=== PATIENT | male | born 1975 | race African-American/Black ===

== ENCOUNTER 2016-12-08 06:44 | Emergency (ER) | payer MEDICAID, OTHER ==
[~2016-12-08] VITALS: Ht 167.6 cm; Wt 93.2 kg
[~2016-12-08 06:44] MED LIST: IBUP800T23 PO; LISI-357 PO; TRAM50 PO
[2016-12-08 06:49] VITALS: BP_SYST 183; BP_SYST 195; BP_DIAS 131; BP_DIAS 136; PULSE 93; RESP 16; TEMP 98.7; O2SAT 98
[2016-12-08 06:59] VITALS: BP 210/132; PULSE 95; RESP 17; O2SAT 98
[2016-12-08] MEDS ORDERED: ACETAMINOPHEN 325 MG TAB PO ONE (07:15)
[2016-12-08] MEDS ORDERED: LISINOPRIL 10 MG TAB PO ONE (07:15)
[2016-12-08 07:36] VITALS: BP 192/126; PULSE 87; RESP 18; O2SAT 98
[2016-12-08 07:42] LABS: AUTOMATED NEUTROPHIL # 8.1 TH/MM3 (1.8-7.7); BASOPHIL # 0.1 TH/MM3 (0-0.2); EOSINOPHIL # 0.1 TH/MM3 (0-0.4); EOSINOPHIL % 1.2 % (0.0-4.0); HEMATOCRIT 43.6 % (39.0-51.0); LYMPH % 11.6 % (9.0-44.0); LYMPHOCYTE # 1.2 TH/MM3 (1.0-4.8); MEAN CELL VOLUME 93.2 FL (80.0-100.0); MEAN CORPUSCULAR HEMOGLOBIN 30.5 PG (27.0-34.0); MEAN CORPUSCULAR HGB CONC 32.8 % (32.0-36.0); MONO % 10.1 % (0.0-8.0); NEUT % 76.1 % (16.0-70.0); PLATELET COUNT 208 TH/MM3 (150-450); RED BLOOD COUNT 4.67 MIL/MM3 (4.50-5.90); RED CELL DISTRIBUTION WIDTH 13.2 % (11.6-17.2); WHITE BLOOD COUNT 10.6 TH/MM3 (4.0-11.0)
[2016-12-08 07:43] LABS: HEMO FLAGS DIFF FINAL
--- NOTE | 2016-12-08 07:46 | RADHPO ---
EXAM DATE/TIME: 12/08/2016 07:19 [place] COMPARISON: CHEST PA & LAT, September 03, 2013, 10:43. INDICATIONS : Short of breath. Facial/throat swelling. MEDICAL HISTORY : Hypertension. SURGICAL HISTORY : Appendectomy. ENCOUNTER: Initial ACUITY: 1 day PAIN SCORE: 0/10 LOCATION: chest FINDINGS: PA and lateral views of the chest demonstrate the lungs to be symmetrically aerated without evidence of mass, infiltrate or effusion. The cardiomediastinal contours are unremarkable. Osseous structure s are intact. CONCLUSION: No acute disease. Devin Long MD on December 08, 2016 at 7:43 Board Certified Radiologist. This report was verified electronically.
[2016-12-08 07:49] LABS: POTASSIUM 3.5 MEQ/L (3.5-5.1)
[2016-12-08 07:52] LABS: BICARBONATE 25.2 MEQ/L (21.0-32.0)
[2016-12-08 08:06] VITALS: BP 198/127; PULSE 84; RESP 18; O2SAT 98
[2016-12-08] MEDS ORDERED: AMLO5TAB2 PO (08:11)
--- NOTE | 2016-12-08 08:11 | PD ---
HPI Chief Complaint: Hypertension Time Seen by Provider: 07:03 Travel History International Travel<30 days: No Contact w/Intl Traveler<30days: No Traveled to known affect area: No History of Present Illness HPI A 41-year-old male presents to the emergency department complaining these had throbbing pain and swelling behind his ears in his head. His blood pressures also been very high. He has a history of hypertension out of medications for the past 1-2 months. No changes in vision. No confusion. No chest pain. States she does get occasional trouble breathing, mostly when he is lying down at night and sleeping. No leg swelling. No history of previous similar symptoms. History Past Medical History Narrative Medical Hypertension Influenza Vaccination: No Social History Alcohol Use: Yes (occasional) Tobacco Use: Yes (cigars) Allergies-Medications (Allergen,Severity, Reaction): Coded Allergies: No Known Allergies (Unverified , 12/08/16) Reported Meds & Prescriptions Reported Meds & Active Scripts Active No Active Prescriptions or Reported Medications Review of Systems Except as stated in HPI: all other systems reviewed are Neg Physical Exam Narrative GENERAL: Well-appearing 41-year-old man, no acute distress. SKIN: Warm and dry. HEAD: Atraumatic. Normocephalic. CARDIOVASCULAR: Regular rate and rhythm. No murmur appreciated. RESPIRATORY: No accessory muscle use. Clear to auscultation. Breath sounds equal bilaterally. GASTROINTESTINAL: Abdomen soft, non-tender, nondistended. Hepatic and splenic margins not palpable. MUSCULOSKELETAL: No obvious deformities. No edema. NEUROLOGICAL: Awake and alert. No obvious cranial nerve deficits. Motor grossly within normal limits. Normal speech. PSYCHIATRIC: Appropriate mood and affect; insight and judgment normal. Data Data Last Documented VS Vital Signs Date Time Temp Pulse Resp B/P Pulse Ox O2 Delivery O2 Flow Rate FiO2 12/08/16 07:36 87 18 192/126 98 Room Air 12/08/16 06:49 98.7 Orders Complete Blood Count With Diff (12/08/16 07:13) Basic Metabolic Panel (Bmp) (12/08/16 07:13) Electrocardiogram (12/08/16 ) Chest, Pa & Lat (12/08/16 ) Iv Access Insert/Monitor (12/08/16 07:13) Acetaminophen (Tylenol) (12/08/16 07:15) Lisinopril (Prinivil) (12/08/16 07:15) Labs Laboratory Tests Test 12/08/16 07:30 White Blood Count 10.6 TH/MM3 Red Blood Count 4.67 MIL/MM3 Hemoglobin 14.3 GM/DL Hematocrit 43.6 % Mean Corpuscular Volume 93.2 FL Mean Corpuscular Hemoglobin 30.5 PG Mean Corpuscular Hemoglobin 32.8 % Concent Red Cell Distribution Width 13.2 % Platelet Count 208 TH/MM3 Mean Platelet Volume 8.8 FL Neutrophils (%) (Auto) 76.1 % Lymphocytes (%) (Auto) 11.6 % Monocytes (%) (Auto) 10.1 % Eosinophils (%) (Auto) 1.2 % Basophils (%) (Auto) 1.0 % Neutrophils # (Auto) 8.1 TH/MM3 Lymphocytes # (Auto) 1.2 TH/MM3 Monocytes # (Auto) 1.1 TH/MM3 Eosinophils # (Auto) 0.1 TH/MM3 Basophils # (Auto) 0.1 TH/MM3 CBC Comment DIFF FINAL Differential Comment Sodium Level 142 MEQ/L Potassium Level 3.5 MEQ/L Chloride Level 108 MEQ/L Carbon Dioxide Level 25.2 MEQ/L Anion Gap 9 MEQ/L Blood Urea Nitrogen 14 MG/DL Creatinine 1.90 MG/DL Estimat Glomerular Filtration 48 ML/MIN Rate Random Glucose 106 MG/DL Calcium Level 8.5 MG/DL [facility] Medical Decision Making Medical Screen Exam Complete: Yes Emergency Medical Condition: Yes Interpretation(s) Review of EKG: Normal sinus rhythm at a rate of 88, normal axis, short RI interval 1 awake, inferolateral T-wave inversions with anterior precordial ST elevations and large QRS suggestive of LVH. Compared to previous EKG lateral precordial T wave inversions are more pronounced. LABS: CBC is unremarkable. BMP is remarkable for elevated creatinine. No old for comparison. Chest x-ray: Negative Differential Diagnosis Hypertensive crisis, ACS, LVH, CHF, other Narrative Course Medical decision making 41-year-old man presents emergency Department with throbbing headache behind his eyes and ears, elevated blood pressure, and occasional shortness of breath. I don't see any evidence of overt heart failure. EKG suggests hypertensive heart disease. I don't think he has an acute coronary syndrome. Probable hypertensive renal disease as well. We will place patient on amlodipine, encourage and keep a log of his blood pressures, close outpatient follow-up. Diagnosis Primary Impression: Hypertension Qualified Code: I10 - Essential hypertension Additional Impression: Cephalgia Qualified Code: G44.209 - Acute non intractable tension-type headache Additional Instructions: Take amlodipine as prescribed. Keep a Log of your blood pressure to go with you when you follow up with your primary doctor. You have evidence of damage she heart in her kidneys from hypertension. It is Essential that you follow-up with a primary physician in the next 2-4 weeks for further evaluation and management of her blood pressure. Return to the emergency department for any chest pain, trouble breathing, or any other new or worsening symptoms. Med/Other Pt SpecificInfo: Prescription(s) given Scripts Amlodipine 5 Mg Tab5 Mg PO DAILY #30 TAB Ref 2 Prov:Jorden Mancilla MD 12/08/16 Disposition: 01 DISCHARGE HOME Condition: Stable Jorden Mancilla MD Dec 08, 2016 08:11
--- NOTE | 2016-12-09 06:50 | EKG ---
Date Performed: 12/08/2016 Time Performed: 07:40:44 PTAGE: 41 years EKG: Sinus rhythm Short UT interval Left ventricular hypertrophy Extensive ST-T changes may be due to hypertrophy and/ or ischemia Abnormal ECG PREVIOUS TRACING : 09/03/2013 10.20 Compared to prior tracing no significant change DOCTOR: Santos Arizmendi Interpretating Date/Time 12/09/2016 06:47:07
== END 2016-12-08 08:24 | disposition home or self-care (01) ==
LOC: PHED 06:44
DX: I10 Essential (primary) hypertension (principal); G44.209 Tension-type headache, unspecified, not intractable
CPT/HCPCS: 71020; 80048; 85025; 93005

== ENCOUNTER 2018-04-30 19:32 | Inpatient (IN) ==
[2018-05-05] MEDS ORDERED: niCARdipine Inj 25 MG in Sodium Chlor 0.9% Inj 240 ML IV.CONT PRN (06:04)
[2018-05-06] MEDS ORDERED: Naloxone Inj 0.4 MG/ML Vial IV.PUSH PRN (00:01)
[2018-05-06] MEDS ORDERED: Chlorhexidine Gluconate 2% 1 Pack (2 Cloths) TOPICAL PRN (00:01)
[2018-05-06] MEDS ORDERED: Acetaminophen 325 MG Tablet PO PRN (00:01)
[2018-05-06] MEDS: niCARdipine Inj 25 MG in Sodium Chlor 0.9% Inj 240 ML IV.CONT PRN ×2 (03:40→10:11)
[2018-05-06] MEDS: Heparin - SQ 10,000 UNITS/ML Vial SQ SCH ×3 (05:31→21:12)
[2018-05-06] MEDS: hydrALAZINE 50 MG Tablet PO SCH ×3 (05:31→21:11)
[2018-05-06] MEDS: Potassium Chloride Inj 10 MEQ in Dextrose 5%/NaCl 0.9% Inj 1,000 ML IV.CONT SCH (05:32)
[2018-05-06] MEDS ORDERED: hydrALAZINE 25 MG Tablet PO SCH (06:00)
[2018-05-06 06:05] LABS: Baso # (Auto) 0.1 th/mm3 (0.0-0.2); Eos # (Auto) 0.2 th/mm3 (0.0-0.4); Hematocrit 38.9 % (39.0-51.0); Hemoglobin 13.3 gm/dL (13.0-17.0); Lymph # (Auto) 1.5 th/mm3 (1.0-4.8); Lymph % (Auto) 27.6 % (9.0-44.0); Mean Corpuscular HGB Conc 34.3 % (32.0-36.0); Mean Corpuscular Hemoglobin 31.9 pg (27.0-34.0); Mean Corpuscular Volume 93.1 fL (80.0-100.0); Mean Platelet Volume 9.5 fL (7.0-11.0); Mono # (Auto) 0.5 th/mm3 (0.0-0.9); Mono % (Auto) 9.1 % (0.0-8.0); Neut # (Auto) 3.1 th/mm3 (1.8-7.7); Neut % (Auto) 58.3 % (16.0-70.0); Platelet Count 216 th/mm3 (150-450); Red Blood Count 4.18 mil/mm3 (4.50-5.90); Red Cell Distribution Width 13.5 % (11.6-17.2); White Blood Count 5.3 th/mm3 (4.0-11.0)
[2018-05-06 06:34] LABS: Alanine Aminotransferase 67 U/L (12-78); Alkaline Phosphatase 86 U/L (45-117); Anion Gap 12 meq/L (5-15); Aspartate Aminotransferase 38 U/L (15-37); Blood Urea Nitrogen 17 mg/dL (7-18); Calcium 8.2 mg/dL (8.5-10.1); Carbon Dioxide 20.4 meq/L (21.0-32.0); Chloride 110 meq/L (98-107); Glomerular Filtration Rate 42 mL/min (>89); Glucose,Random 92 mg/dL (74-106); Phosphorus 3.5 mg/dL (2.5-4.9); Potassium 3.5 meq/L (3.5-5.1); Sodium 142 meq/L (136-145); Total Protein 6.4 g/dL (6.4-8.2)
[2018-05-06] MEDS ORDERED: Bisacodyl 10 MG Supp RECTAL PRN (09:00)
[2018-05-06] MEDS: Pantoprazole Inj 40 MG Vial IV.PUSH SCH (09:06)
[2018-05-06] MEDS: amLODIPine 10 MG Tablet PO SCH (09:06)
[2018-05-06] MEDS: Senna/Docusate Sodium 8.6/50 MG Tablet PO SCH ×2 (09:08→21:11)
--- NOTE | 2018-05-06 10:21 | P.PN ---
Subjective Interval history: Patient is alert, no SOB, no headache. Physical Exam Vital signs: Vital Signs 05/06/18 00:04 05/06/18 00:15 05/06/18 00:30 Temperature Pulse Rate 68 67 67 Respiratory Rate 18 18 20 Blood Pressure 147/84 H 150/96 H Pulse Oximetry 100 100 99 05/06/18 00:45 05/06/18 01:00 05/06/18 01:15 Temperature Pulse Rate 61 64 60 Respiratory Rate 14 19 14 Blood Pressure 147/91 H 148/89 H 142/85 H Pulse Oximetry 99 98 99 05/06/18 01:30 05/06/18 01:45 05/06/18 02:00 Temperature Pulse Rate 62 67 67 Respiratory Rate 18 18 22 Blood Pressure 149/86 H 153/89 H 150/66 H Pulse Oximetry 99 99 100 05/06/18 02:15 05/06/18 02:30 05/06/18 02:45 Temperature Pulse Rate 67 65 65 Respiratory Rate 16 21 19 Blood Pressure 154/95 H 152/81 H 150/85 H Pulse Oximetry 100 100 100 05/06/18 03:00 05/06/18 03:15 05/06/18 03:30 Temperature Pulse Rate 67 76 60 Respiratory Rate 18 31 H 14 Blood Pressure 152/88 H 154/93 H 146/88 H Pulse Oximetry 100 93 L 100 05/06/18 03:45 05/06/18 04:00 05/06/18 04:15 Temperature 98.0 F Pulse Rate 67 61 62 Respiratory Rate 20 16 16 Blood Pressure 156/90 H 147/84 H 145/84 H Pulse Oximetry 100 100 100 05/06/18 04:30 05/06/18 04:45 05/06/18 05:00 Temperature Pulse Rate 61 66 62 Respiratory Rate 16 18 14 Blood Pressure 144/81 H 145/82 H 145/84 H Pulse Oximetry 100 98 99 Intake & Output 05/05/18 05/06/18 05/06/18 18:59 06:59 18:59 Intake Total 240 / 240 250 / 250 Output Total 2350 / 2350 Balance -2109 / -2109 250 / 250 Weight 80 kg Intake: IV 250 / 250 Cardene Inj 25 MG In NS Inj 240 250 / 250 ML @ 5 MG/HR 50 mls/hr IV.CONT TITRATE PRN Rx#:[id number] Oral 240 / 240 Output: Urine 2350 / 2350 - Constitutional no acute distress - Routine HEENT Exam Head: Present: normocephalic Eye: Present: EOMI ENT: Present: mucous membranes moist - Routine Neck Exam Present: supple, JVD - Routine Respiratory Exam Present: CTA bilaterally, diminished air movement - Routine Cardiovascular Exam Present: S1, S2 - Routine Abdominal Exam Present: soft, normoactive bowel sounds, tenderness - Routine Extremities Exam Comments: No leg edema. - Routine Neurological Exam Present: alert, oriented X3 Results - Labs CBC & Chem 7: 05/06/18 05:10 05/06/18 05:10 Labs: Laboratory Results - last 24 hr 05/02/18 05/03/18 05/04/18 05:54 06:03 07:30 WBC RBC Hgb Hct MCV MCH MCHC RDW Plt Count MPV Neut % (Auto) Lymph % (Auto) [place] % (Auto) Eos % (Auto) Baso % (Auto) Neut # (Auto) Lymph # (Auto) [place] # (Auto) Eos # (Auto) Baso # (Auto) CBC Comment WBC Differential Differential Comment Sodium Cancelled Potassium Cancelled Chloride Cancelled Carbon Dioxide Cancelled Anion Gap Cancelled BUN Cancelled Creatinine Cancelled Estimated GFR Cancelled Random Glucose Cancelled Calcium Cancelled Phosphorus Cancelled Magnesium Total Bilirubin AST ALT Alkaline Phosphatase Total Protein Albumin Cancelled Triglycerides 66 Cholesterol 171 LDL Cholesterol 106 H HDL Cholesterol 52.0 Cholesterol/HDL Ratio 3.28 Renin 8.2 Plasma Normetanephrine 0.41 Fract Metanephrines <0.20 Urine Color Urine Turbidity Urine pH Ur Specific [place] Urine Protein Urine Glucose (UA) Urine Ketones Urine Occult Blood Urine Nitrite Urine Bilirubin Urine Urobilinogen Ur Leukocyte Esterase Urine RBC Urine Mucus Micro UA Comment 05/04/18 05/04/18 05/05/18 07:30 07:30 03:58 WBC 6.1 RBC 4.04 L Hgb 12.9 L Hct 38.6 L MCV 95.4 MCH 32.0 MCHC 33.5 RDW 13.2 Plt Count 202 MPV 9.4 Neut % (Auto) 61.6 Lymph % (Auto) 25.4 [place] % (Auto) 9.7 H Eos % (Auto) 2.4 Baso % (Auto) 0.9 Neut # (Auto) 3.8 Lymph # (Auto) 1.6 [place] # (Auto) 0.6 Eos # (Auto) 0.1 Baso # (Auto) 0.1 CBC Comment DIFF FINAL WBC Differential Differential Comment Sodium 140 142 Potassium 3.7 3.4 L Chloride 111 H 113 H Carbon Dioxide 18.7 L 20.9 L Anion Gap 10 8 BUN 24 H 20 H Creatinine 2.53 H 2.32 H Estimated GFR 34 L 38 L Random Glucose 90 94 Calcium 7.9 L 8.1 L Phosphorus 3.0 Magnesium 1.9 1.9 Total Bilirubin 0.7 AST 25 ALT 30 Alkaline Phosphatase 80 Total Protein 6.3 L D Albumin 3.0 L Triglycerides Cholesterol LDL Cholesterol HDL Cholesterol Cholesterol/HDL Ratio [place] Plasma Normetanephrine Fract Metanephrines Urine Color Urine Turbidity Urine pH Ur Specific [place] Urine Protein Urine Glucose (UA) Urine Ketones Urine Occult Blood Urine Nitrite Urine Bilirubin Urine Urobilinogen Ur Leukocyte Esterase Urine RBC Urine Mucus Micro UA Comment 05/05/18 05/05/18 05/06/18 12:18 20:00 05:10 WBC 5.3 RBC 4.18 L Hgb 13.3 Hct 38.9 L MCV 93.1 MCH 31.9 MCHC 34.3 RDW 13.5 Plt Count 216 MPV 9.5 Neut % (Auto) 58.3 Lymph % (Auto) 27.6 [place] % (Auto) 9.1 H Eos % (Auto) 4.0 Baso % (Auto) 1.0 Neut # (Auto) 3.1 Lymph # (Auto) 1.5 [place] # (Auto) 0.5 Eos # (Auto) 0.2 Baso # (Auto) 0.1 CBC Comment WBC Differential . Differential Comment Auto diff final Sodium Potassium 3.8 Chloride Carbon Dioxide Anion Gap BUN Creatinine Estimated GFR Random Glucose Calcium Phosphorus Magnesium Total Bilirubin AST ALT Alkaline Phosphatase Total Protein Albumin Triglycerides Cholesterol LDL Cholesterol HDL Cholesterol Cholesterol/HDL Ratio [place] Plasma Normetanephrine Fract Metanephrines Urine Color Straw Urine Turbidity CLEAR Urine pH 7.0 Ur Specific [place] 1.008 Urine Protein NEG Urine Glucose (UA) 50 Urine Ketones NEG Urine Occult Blood NEG Urine Nitrite NEG Urine Bilirubin NEG Urine Urobilinogen LESS THAN 2 Ur Leukocyte Esterase NEG Urine RBC LESS THAN 1 Urine Mucus FEW H Micro UA Comment CULT NOT INDICATED 05/06/18 05:10 WBC RBC Hgb Hct MCV MCH MCHC RDW Plt Count MPV Neut % (Auto) Lymph % (Auto) [place] % (Auto) Eos % (Auto) Baso % (Auto) Neut # (Auto) Lymph # (Auto) [place] # (Auto) Eos # (Auto) Baso # (Auto) CBC Comment WBC Differential Differential Comment Sodium 142 Potassium 3.5 Chloride 110 H Carbon Dioxide 20.4 L Anion Gap 12 BUN 17 Creatinine 2.13 H Estimated GFR 42 L Random Glucose 92 Calcium 8.2 L Phosphorus 3.5 Magnesium 2.0 Total Bilirubin 0.4 AST 38 H ALT 67 Alkaline Phosphatase 86 Total Protein 6.4 Albumin 3.0 L Triglycerides Cholesterol LDL Cholesterol HDL Cholesterol Cholesterol/HDL Ratio [place] Plasma Normetanephrine Fract Metanephrines Urine Color Urine Turbidity Urine pH Ur Specific [place] Urine Protein Urine Glucose (UA) Urine Ketones Urine Occult Blood Urine Nitrite Urine Bilirubin Urine Urobilinogen Ur Leukocyte Esterase Urine RBC Urine Mucus Micro UA Comment Assessment and Plan - Plan (1) Malignant hypertension (arteriolar nephrosclerosis) ICD Codes: I12.9 - Hypertensive chronic kidney disease with stage 1 through stage 4 chronic kidney disease, or unspecified chronic kidney disease Plan: patient had BP 287/174 He had end organ damage HTN nephropathy non compliance stopped medications BP better , still on Nicardipine gtt. Renin is upper normal range. Metanephrine and Nor metanephrine normal. GFR improved may need MRA FREDDIE Creatinine continue to improve. Avoid Nephrotoxins. Has no proteinuria. (2) Hypertensive emergency ICD Codes: I16.1 - Hypertensive emergency Status: Acute Plan: non compliance (3) CVA (cerebral vascular accident) ICD Codes: I63.9 - Cerebral infarction, unspecified Plan: neurology following
--- NOTE | 2018-05-06 13:14 | P.PNIM ---
Subjective Interval history: The patient denies chest pain or shortness of breath. The patient denies headache. The patient states he is ready to go home. Creatinine trending down. As per RN the patient still on Cardene drip. Physical Exam Vital signs: Vital Signs 05/06/18 00:04 05/06/18 00:15 05/06/18 00:30 Temperature Pulse Rate 68 67 67 Respiratory Rate 18 18 20 Blood Pressure 147/84 H 150/96 H Pulse Oximetry 100 100 99 05/06/18 00:45 05/06/18 01:00 05/06/18 01:15 Temperature Pulse Rate 61 64 60 Respiratory Rate 14 19 14 Blood Pressure 147/91 H 148/89 H 142/85 H Pulse Oximetry 99 98 99 05/06/18 01:30 05/06/18 01:45 05/06/18 02:00 Temperature Pulse Rate 62 67 67 Respiratory Rate 18 18 22 Blood Pressure 149/86 H 153/89 H 150/66 H Pulse Oximetry 99 99 100 05/06/18 02:15 05/06/18 02:30 05/06/18 02:45 Temperature Pulse Rate 67 65 65 Respiratory Rate 16 21 19 Blood Pressure 154/95 H 152/81 H 150/85 H Pulse Oximetry 100 100 100 05/06/18 03:00 05/06/18 03:15 05/06/18 03:30 Temperature Pulse Rate 67 76 60 Respiratory Rate 18 31 H 14 Blood Pressure 152/88 H 154/93 H 146/88 H Pulse Oximetry 100 93 L 100 05/06/18 03:45 05/06/18 04:00 05/06/18 04:15 Temperature 98.0 F Pulse Rate 67 61 62 Respiratory Rate 20 16 16 Blood Pressure 156/90 H 147/84 H 145/84 H Pulse Oximetry 100 100 100 05/06/18 04:30 05/06/18 04:45 05/06/18 05:00 Temperature Pulse Rate 61 66 62 Respiratory Rate 16 18 14 Blood Pressure 144/81 H 145/82 H 145/84 H Pulse Oximetry 100 98 99 Intake & Output 05/05/18 05/06/18 05/06/18 18:59 06:59 18:59 Intake Total 240 / 240 250 / 250 Output Total 2350 / 2350 Balance -2110 / -2110 250 / 250 Weight 80 kg Intake: IV 250 / 250 Cardene Inj 25 MG In NS Inj 240 250 / 250 ML @ 5 MG/HR 50 mls/hr IV.CONT TITRATE PRN Rx#:[id number] Oral 240 / 240 Output: Urine 2350 / 2350 - Constitutional no acute distress - Routine HEENT Exam Head: Present: normocephalic Eye: Present: PERRL - Routine Neck Exam Present: supple - Routine Respiratory Exam Present: CTA bilaterally - Routine Cardiovascular Exam Present: RRR, S1, S2 - Routine Abdominal Exam Present: soft, normoactive bowel sounds - Routine Neurological Exam Present: alert, oriented X3, CN II-XII intact - Routine Psychiatric Exam Present: normal affect Results - Labs CBC & Chem 7: 05/06/18 05:10 05/06/18 05:10 Labs: Abnormal Lab Results 05/02/18 05/03/18 05/04/18 05:54 06:03 07:30 WBC RBC Hgb Hct MCV MCH MCHC RDW Plt Count MPV Neut % (Auto) Lymph % (Auto) [place] % (Auto) Eos % (Auto) Baso % (Auto) Neut # (Auto) Lymph # (Auto) [place] # (Auto) Eos # (Auto) Baso # (Auto) CBC Comment WBC Differential Differential Comment Sodium Cancelled Potassium Cancelled Chloride Cancelled Carbon Dioxide Cancelled Anion Gap Cancelled BUN Cancelled Creatinine Cancelled Estimated GFR Cancelled Random Glucose Cancelled Calcium Cancelled Phosphorus Cancelled Magnesium Total Bilirubin AST ALT Alkaline Phosphatase Total Protein Albumin Cancelled Triglycerides 66 Cholesterol 171 LDL Cholesterol 106 H HDL Cholesterol 52.0 Cholesterol/HDL Ratio 3.28 Renin 8.2 Plasma Normetanephrine 0.41 Fract Metanephrines <0.20 Urine Color Urine Turbidity Urine pH Ur Specific [place] Urine Protein Urine Glucose (UA) Urine Ketones Urine Occult Blood Urine Nitrite Urine Bilirubin Urine Urobilinogen Ur Leukocyte Esterase Urine RBC Urine Mucus Micro UA Comment 05/04/18 05/04/18 05/05/18 07:30 07:30 03:58 WBC 6.1 RBC 4.04 L Hgb 12.9 L Hct 38.6 L MCV 95.4 MCH 32.0 MCHC 33.5 RDW 13.2 Plt Count 202 MPV 9.4 Neut % (Auto) 61.6 Lymph % (Auto) 25.4 [place] % (Auto) 9.7 H Eos % (Auto) 2.4 Baso % (Auto) 0.9 Neut # (Auto) 3.8 Lymph # (Auto) 1.6 [place] # (Auto) 0.6 Eos # (Auto) 0.1 Baso # (Auto) 0.1 CBC Comment DIFF FINAL WBC Differential Differential Comment Sodium 140 142 Potassium 3.7 3.4 L Chloride 111 H 113 H Carbon Dioxide 18.7 L 20.9 L Anion Gap 10 8 BUN 24 H 20 H Creatinine 2.53 H 2.32 H Estimated GFR 34 L 38 L Random Glucose 90 94 Calcium 7.9 L 8.1 L Phosphorus 3.0 Magnesium 1.9 1.9 Total Bilirubin 0.7 AST 25 ALT 30 Alkaline Phosphatase 80 Total Protein 6.3 L D Albumin 3.0 L Triglycerides Cholesterol LDL Cholesterol HDL Cholesterol Cholesterol/HDL Ratio [place] Plasma Normetanephrine Fract Metanephrines Urine Color Urine Turbidity Urine pH Ur Specific [place] Urine Protein Urine Glucose (UA) Urine Ketones Urine Occult Blood Urine Nitrite Urine Bilirubin Urine Urobilinogen Ur Leukocyte Esterase Urine RBC Urine Mucus Micro UA Comment 05/05/18 05/05/18 05/06/18 12:18 20:00 05:10 WBC 5.3 RBC 4.18 L Hgb 13.3 Hct 38.9 L MCV 93.1 MCH 31.9 MCHC 34.3 RDW 13.5 Plt Count 216 MPV 9.5 Neut % (Auto) 58.3 Lymph % (Auto) 27.6 [place] % (Auto) 9.1 H Eos % (Auto) 4.0 Baso % (Auto) 1.0 Neut # (Auto) 3.1 Lymph # (Auto) 1.5 [place] # (Auto) 0.5 Eos # (Auto) 0.2 Baso # (Auto) 0.1 CBC Comment WBC Differential . Differential Comment Auto diff final Sodium Potassium 3.8 Chloride Carbon Dioxide Anion Gap BUN Creatinine Estimated GFR Random Glucose Calcium Phosphorus Magnesium Total Bilirubin AST ALT Alkaline Phosphatase Total Protein Albumin Triglycerides Cholesterol LDL Cholesterol HDL Cholesterol Cholesterol/HDL Ratio [place] Plasma Normetanephrine Fract Metanephrines Urine Color Straw Urine Turbidity CLEAR Urine pH 7.0 Ur Specific [place] 1.008 Urine Protein NEG Urine Glucose (UA) 50 Urine Ketones NEG Urine Occult Blood NEG Urine Nitrite NEG Urine Bilirubin NEG Urine Urobilinogen LESS THAN 2 Ur Leukocyte Esterase NEG Urine RBC LESS THAN 1 Urine Mucus FEW H Micro UA Comment CULT NOT INDICATED 05/06/18 05:10 WBC RBC Hgb Hct MCV MCH MCHC RDW Plt Count MPV Neut % (Auto) Lymph % (Auto) [place] % (Auto) Eos % (Auto) Baso % (Auto) Neut # (Auto) Lymph # (Auto) [place] # (Auto) Eos # (Auto) Baso # (Auto) CBC Comment WBC Differential Differential Comment Sodium 142 Potassium 3.5 Chloride 110 H Carbon Dioxide 20.4 L Anion Gap 12 BUN 17 Creatinine 2.13 H Estimated GFR 42 L Random Glucose 92 Calcium 8.2 L Phosphorus 3.5 Magnesium 2.0 Total Bilirubin 0.4 AST 38 H ALT 67 Alkaline Phosphatase 86 Total Protein 6.4 Albumin 3.0 L Triglycerides Cholesterol LDL Cholesterol HDL Cholesterol Cholesterol/HDL Ratio [place] Plasma Normetanephrine Fract Metanephrines Urine Color Urine Turbidity Urine pH Ur Specific [place] Urine Protein Urine Glucose (UA) Urine Ketones Urine Occult Blood Urine Nitrite Urine Bilirubin Urine Urobilinogen Ur Leukocyte Esterase Urine RBC Urine Mucus Micro UA Comment - Imaging Imaging: Head magnetic resonance angiography on 05/02/18 Moderate atherosclerotic intracranial vascular disease otherwise negative. Head CT on 05/02/18 No acute abnormality seen. No significant change is seen. Carotid artery ultrasound on 05/02/18 No evidence of flow-limiting carotid stenosis. Brain MRI on 05/02/18 Subacute infarction in the left cerebellar peduncle. Renal ultrasound on 05/01/18 Ultrasound of the urinary system is within normal limits. Chest x-ray on 04/30/18 No acute cardiopulmonary abnormality is identified. Chest x-ray Attestation: I personally reviewed and interpreted this imaging study as follows : Assessment and Plan - Plan Hypertensive crisis Nicardipine drip- - d/w staff- Continue to wean to off. Patient states he was previously on lisinopril however does not know the dosing started on Amlodipine and clonidine which was increased to 0.2 mg. BP's still higher than the 140's. Hydralazine added. 05/05 patient still on Cardene drip, I will increase hydralazine dose from 25 mg every 8 hours to 50 minute grams every 8 hours p.o. Continue amlodipine 10 mg p.o. daily and clonidine 0.2 mg p.o. every 8 hours.50 05/06 patient still on Cardene drip. Continue hydralazine at 50 mg every 8 hours orally, amlodipine 10 g daily and increase clonidine to 0.3 mg p.o. every 8 hours. This was discussed with RN who will try to titrate the patient off Cardene drip. Subacute cerebellar CVA. The patient presented with new left facial numbness. Neurology consulted. The patient was placed on aspirin. Head CT negative. MRI of the brain showed a subacute cerebellar infarct. MRI and ultrasound the carotids negative for stenosis. Carotid echo negative. TOM Likely with some underlying hypertensive nephrosclerosis. Creatinine on admission 2.43, worsening initially peaked at 3.16 now downtrending to 2.32. Baseline creatinine seems to be at 1.9. Possible CKD stage III. Nephrology consulted. Follow-up recommendations. Continue IV fluids as per nephrology. Tests ordered for evaluation of secondary hypertension was sent. Continue to monitor BUN and creatinine, strict input and output, avoid nephrotoxins. 05/06 creatinine continues to trend down, continue to monitor BUN and creatinine, history I's and O's. Renin is upper normal range. Metanephrine and Nor metanephrine normal. GFR improved may need MRA FREDDIE Creatinine continue to improve. Avoid Nephrotoxins. Has no proteinuria. Hypokalemia Status post replacement. Continue to monitor BMP and replace as needed. Nausea Patient initially with persistent nausea. Possibly secondary from uremia or severely elevated blood pressure. Nausea has resolved. Continue Zofran as needed. TEDs/SCDs for DVT prophylaxis -I will add Lovenox subcutaneously for DVT prophylaxis given the patient is at high risk for stroke. FEN Heart healthy diet Code Status: Full code Discussed Condition With: RN, patient. Discharge Planning: Discharge pending stabilization of blood pressure and titrating the patient off Cardene drip. Nephrology clearance.
[2018-05-07] MEDS: Potassium Chloride Inj 10 MEQ in Dextrose 5%/NaCl 0.9% Inj 1,000 ML IV.CONT SCH ×2 (03:34→18:30)
[2018-05-07] MEDS: Heparin - SQ 10,000 UNITS/ML Vial SQ SCH ×3 (05:14→21:27)
[2018-05-07] MEDS: hydrALAZINE 50 MG Tablet PO SCH (05:14)
[2018-05-07] MEDS: Senna/Docusate Sodium 8.6/50 MG Tablet PO SCH ×2 (08:17→20:39)
[2018-05-07] MEDS: amLODIPine 10 MG Tablet PO SCH (08:17)
[2018-05-07] MEDS: Pantoprazole Inj 40 MG Vial IV.PUSH SCH (08:17)
[2018-05-07 11:45] LABS: Calcium 8.4 mg/dL (8.5-10.1); Carbon Dioxide 20.9 meq/L (21.0-32.0)
--- NOTE | 2018-05-07 13:11 | P.PN ---
Subjective Interval history: Patient is alert, no headache or dizziness, no SOB. Physical Exam Vital signs: Vital Signs 05/06/18 13:45 05/06/18 14:00 05/06/18 14:15 Temperature Pulse Rate 67 71 67 Respiratory Rate Blood Pressure 165/91 H 175/81 H 149/81 H Pulse Oximetry 100 100 100 05/06/18 14:30 05/06/18 14:45 05/06/18 15:00 Temperature Pulse Rate 66 64 67 Respiratory Rate Blood Pressure 156/82 H 142/79 H 152/86 H Pulse Oximetry 100 100 98 05/06/18 15:15 05/06/18 15:30 05/06/18 15:45 Temperature Pulse Rate 65 74 63 Respiratory Rate Blood Pressure 140/80 150/88 H 147/86 H Pulse Oximetry 99 100 99 05/06/18 16:00 05/06/18 16:15 05/06/18 16:31 Temperature 98.2 F Pulse Rate 58 L 66 63 Respiratory Rate Blood Pressure 142/83 H 157/97 H 142/82 H Pulse Oximetry 99 99 100 05/06/18 16:45 05/06/18 17:00 05/06/18 17:15 Temperature Pulse Rate 58 L 56 L 55 L Respiratory Rate Blood Pressure 151/94 H 149/95 H 161/98 H Pulse Oximetry 99 99 99 05/06/18 17:30 05/06/18 17:45 05/06/18 18:00 Temperature Pulse Rate 55 L 57 L 64 Respiratory Rate Blood Pressure 153/94 H 162/101 H 173/106 H Pulse Oximetry 99 99 100 05/06/18 18:15 05/06/18 18:18 05/06/18 18:30 Temperature Pulse Rate 63 70 61 Respiratory Rate Blood Pressure 162/101 H 169/101 H 157/97 H Pulse Oximetry 100 100 100 05/06/18 18:45 05/06/18 19:00 05/06/18 19:15 Temperature Pulse Rate 60 58 L 57 L Respiratory Rate 18 Blood Pressure 148/95 H 156/100 H 157/99 H Pulse Oximetry 100 100 100 05/06/18 20:00 05/06/18 21:00 05/06/18 22:00 Temperature 98.3 F Pulse Rate 60 58 L 61 Respiratory Rate 20 20 20 Blood Pressure 160/97 H 158/94 H 152/82 H Pulse Oximetry 100 100 100 05/06/18 23:00 05/07/18 00:00 05/07/18 01:00 Temperature 98.0 F Pulse Rate 56 L 58 L 53 L Respiratory Rate 18 18 16 Blood Pressure 157/100 H 153/95 H 155/94 H Pulse Oximetry 99 100 100 05/07/18 02:00 05/07/18 03:00 05/07/18 04:00 Temperature 97.8 F Pulse Rate 55 L 54 L 54 L Respiratory Rate 16 16 18 Blood Pressure 153/94 H 154/96 H 147/93 H Pulse Oximetry 98 99 100 05/07/18 05:00 05/07/18 06:00 05/07/18 08:00 Temperature 98.4 F Pulse Rate 53 L 56 L 54 L Respiratory Rate 18 18 18 Blood Pressure 160/99 H 159/99 H 164/95 H Pulse Oximetry 99 100 98 05/07/18 12:00 Temperature 98.5 F Pulse Rate 56 L Respiratory Rate 18 Blood Pressure 160/83 H Pulse Oximetry 100 Intake & Output 05/06/18 05/07/18 05/07/18 18:59 06:59 18:59 Intake Total 250 / 250 740 / 740 Output Total 2049 Balance 250 / 250 -1310 / -1310 Weight 80.2 kg Intake: IV 250 / 250 Cardene Inj 25 MG In NS Inj 240 250 / 250 ML @ 5 MG/HR 50 mls/hr IV.CONT TITRATE PRN Rx#:[id number] Oral 740 / 740 Output: Urine 2049 - Constitutional no acute distress - Routine HEENT Exam Head: Present: normocephalic Eye: Present: EOMI ENT: Present: mucous membranes moist - Routine Neck Exam Present: supple, JVD - Routine Respiratory Exam Present: CTA bilaterally - Routine Cardiovascular Exam Present: S1, S2 - Routine Abdominal Exam Present: soft, normoactive bowel sounds, distended - Routine Neurological Exam Present: alert, oriented X3 Results - Labs CBC & Chem 7: 05/06/18 05:10 05/07/18 10:55 Laboratory Results - last 24 hr 05/07/18 10:55 Sodium 140 Potassium 4.0 Chloride 109 H Carbon Dioxide 20.9 L Anion Gap 10 BUN 18 Creatinine 2.34 H Estimated GFR 37 L Random Glucose 85 Calcium 8.4 L Assessment and Plan - Plan (1) Malignant hypertension (arteriolar nephrosclerosis) ICD Codes: I12.9 - Hypertensive chronic kidney disease with stage 1 through stage 4 chronic kidney disease, or unspecified chronic kidney disease Plan: patient had BP 287/174 He had end organ damage HTN nephropathy non compliance stopped medications BP better , now off Nicardipine gtt. Renin is upper normal range. Metanephrine and Nor metanephrine normal. May need MRA for FREDDIE , if Creatinine improved. Creatinine is stable. Avoid Nephrotoxins. Has no proteinuria. (2) Hypertensive emergency ICD Codes: I16.1 - Hypertensive emergency Status: Acute Plan: non compliance (3) CVA (cerebral vascular accident) ICD Codes: I63.9 - Cerebral infarction, unspecified Plan: neurology following
--- NOTE | 2018-05-07 16:39 | P.PNIM ---
Subjective Interval history: Deferred entry, the patient was seen earlier at 10 AM today. The patient denies headache, chest pain, shortness of breath, dizziness. Patient is off Cardene drip, BP is improving however still elevated. Physical Exam Vital signs: Vital Signs 05/06/18 16:45 05/06/18 17:00 05/06/18 17:15 Temperature Pulse Rate 58 L 56 L 55 L Respiratory Rate Blood Pressure 151/94 H 149/95 H 161/98 H Pulse Oximetry 99 99 99 05/06/18 17:30 05/06/18 17:45 05/06/18 18:00 Temperature Pulse Rate 55 L 57 L 64 Respiratory Rate Blood Pressure 153/94 H 162/101 H 173/106 H Pulse Oximetry 99 99 100 05/06/18 18:15 05/06/18 18:18 05/06/18 18:30 Temperature Pulse Rate 63 70 61 Respiratory Rate Blood Pressure 162/101 H 169/101 H 157/97 H Pulse Oximetry 100 100 100 05/06/18 18:45 05/06/18 19:00 05/06/18 19:15 Temperature Pulse Rate 60 58 L 57 L Respiratory Rate 18 Blood Pressure 148/95 H 156/100 H 157/99 H Pulse Oximetry 100 100 100 05/06/18 20:00 05/06/18 21:00 05/06/18 22:00 Temperature 98.3 F Pulse Rate 60 58 L 61 Respiratory Rate 20 20 20 Blood Pressure 160/97 H 158/94 H 152/82 H Pulse Oximetry 100 100 100 05/06/18 23:00 05/07/18 00:00 05/07/18 01:00 Temperature 98.0 F Pulse Rate 56 L 58 L 53 L Respiratory Rate 18 18 16 Blood Pressure 157/100 H 153/95 H 155/94 H Pulse Oximetry 99 100 100 05/07/18 02:00 05/07/18 03:00 05/07/18 04:00 Temperature 97.8 F Pulse Rate 55 L 54 L 54 L Respiratory Rate 16 16 18 Blood Pressure 153/94 H 154/96 H 147/93 H Pulse Oximetry 98 99 100 05/07/18 05:00 05/07/18 06:00 05/07/18 08:00 Temperature 98.4 F Pulse Rate 53 L 56 L 54 L Respiratory Rate 18 18 18 Blood Pressure 160/99 H 159/99 H 164/95 H Pulse Oximetry 99 100 98 05/07/18 12:00 Temperature 98.5 F Pulse Rate 56 L Respiratory Rate 18 Blood Pressure 160/83 H Pulse Oximetry 100 Intake & Output 05/06/18 05/07/18 05/07/18 18:59 06:59 18:59 Intake Total 250 / 250 740 / 740 Output Total 2049 Balance 250 / 250 -1310 / -1310 Weight 80.2 kg Intake: IV 250 / 250 Cardene Inj 25 MG In NS Inj 240 250 / 250 ML @ 5 MG/HR 50 mls/hr IV.CONT TITRATE PRN Rx#:[id number] Oral 740 / 740 Output: Urine 2049 Narrative: - Constitutional no acute distress - Routine HEENT Exam Head: Present: normocephalic Eye: Present: PERRL - Routine Neck Exam Present: supple - Routine Respiratory Exam Present: CTA bilaterally - Routine Cardiovascular Exam Present: RRR, S1, S2 - Routine Abdominal Exam Present: soft, normoactive bowel sounds - Routine Neurological Exam Present: alert, oriented X3, CN II-XII intact - Routine Psychiatric Exam Present: normal affect Results - Labs CBC & Chem 7: 05/06/18 05:10 05/07/18 10:55 Laboratory Results - last 24 hr 05/07/18 10:55 Sodium 140 Potassium 4.0 Chloride 109 H Carbon Dioxide 20.9 L Anion Gap 10 BUN 18 Creatinine 2.34 H Estimated GFR 37 L Random Glucose 85 Calcium 8.4 L Assessment and Plan - Plan Hypertensive crisis Nicardipine drip- - d/w staff- Continue to wean to off. Patient states he was previously on lisinopril however does not know the dosing started on Amlodipine and clonidine which was increased to 0.2 mg. BP's still higher than the 140's. Hydralazine added. 05/05 patient still on Cardene drip, I will increase hydralazine dose from 25 mg every 8 hours to 50 minute grams every 8 hours p.o. Continue amlodipine 10 mg p.o. daily and clonidine 0.2 mg p.o. every 8 hours.50 05/06 patient still on Cardene drip. Continue hydralazine at 50 mg every 8 hours orally, amlodipine 10 g daily and increase clonidine to 0.3 mg p.o. every 8 hours. This was discussed with RN who will try to titrate the patient off Cardene drip. / of Cardene drip. Patient however still with severely elevated blood pressure with systolic blood pressure in the 170s. Increase hydralazine to 100 mg every 8 hours orally. Continue amlodipine 10 mg daily and clonidine 0.3 mg p.o. every 8 hours. Subacute cerebellar CVA. The patient presented with new left facial numbness. Neurology consulted. The patient was placed on aspirin. Head CT negative. MRI of the brain showed a subacute cerebellar infarct. MRI and ultrasound the carotids negative for stenosis. Carotid echo negative. Continue aspirin. TOM Likely with some underlying hypertensive nephrosclerosis. Creatinine on admission 2.43, worsening initially peaked at 3.16 now downtrending to 2.32. Baseline creatinine seems to be at 1.9. Possible CKD stage III. Nephrology consulted. Follow-up recommendations. Continue IV fluids as per nephrology. Tests ordered for evaluation of secondary hypertension was sent. Continue to monitor BUN and creatinine, strict input and output, avoid nephrotoxins. 05/06 creatinine continues to trend down, continue to monitor BUN and creatinine, history I's and O's. Renin is upper normal range. Metanephrine and Nor metanephrine normal. GFR improved may need MRA FREDDIE Creatinine continue to improve. Avoid Nephrotoxins. Has no proteinuria. 7 / creatinine slightly worse today up to 2.34. Follow-up BMP and BUN and creatinine, history I's and O's. Avoid nephrotoxins. Follow-up nephrology recommendations. Hypokalemia Status post replacement. Continue to monitor BMP and replace as needed. Nausea Patient initially with persistent nausea. Possibly secondary from uremia or severely elevated blood pressure. Nausea has resolved. Continue Zofran as needed. TEDs/SCDs for DVT prophylaxis -continue heparin subcutaneously. FEN Heart healthy diet Code Status: Full code Discussed Condition With: Patient, RN. Discharge Planning: Discharge pending stabilization of blood pressure and titrating the patient off Cardene drip. Nephrology clearance.
[2018-05-08] MEDS: Heparin - SQ 10,000 UNITS/ML Vial SQ SCH ×3 (05:34→21:42)
[2018-05-08] MEDS: Pantoprazole Inj 40 MG Vial IV.PUSH SCH (08:09)
[2018-05-08] MEDS: Senna/Docusate Sodium 8.6/50 MG Tablet PO SCH ×4 (08:10→21:46)
[2018-05-08] MEDS: amLODIPine 10 MG Tablet PO SCH (08:10)
[2018-05-08 13:10] LABS: Calcium 9.1 mg/dL (8.5-10.1); Carbon Dioxide 21.9 meq/L (21.0-32.0); Potassium 4.3 meq/L (3.5-5.1)
[2018-05-08] MEDS: Potassium Chloride Inj 10 MEQ in Dextrose 5%/NaCl 0.9% Inj 1,000 ML IV.CONT SCH (13:12)
[2018-05-08] MEDS ORDERED: Sod Chloride 0.9% Inj 1,000 ML IV.CONT SCH (14:15)
--- NOTE | 2018-05-08 16:22 | P.PNIM ---
Subjective Interval history: Deferred entry - patient seen earlier at around 9:30 AM. The patient denies headache, chest pain or shortness of breath. The patient wants to go home. Patient is off Cardene drip and BP has improved. Physical Exam Vital signs: Vital Signs 05/07/18 20:00 05/08/18 00:00 05/08/18 04:00 Temperature 98.2 F 98.2 F 98 F Pulse Rate 59 L 53 L 53 L Respiratory Rate 14 14 14 Blood Pressure 156/95 H 154/97 H 161/95 H Pulse Oximetry 98 96 95 05/08/18 08:00 05/08/18 12:00 Temperature 98.2 F 98.0 F Pulse Rate 51 L 60 Respiratory Rate 20 16 Blood Pressure 173/112 H 167/96 H Pulse Oximetry 98 100 Intake & Output 05/07/18 05/08/18 05/08/18 18:59 06:59 18:59 Intake Total 360 / 360 Output Total 1600 / 1600 Balance -1240 / -1240 Weight 78.5 kg Intake: Oral 360 / 360 Output: Urine 1600 / 1600 Other: # Bowel Movements 0 Narrative: - Constitutional no acute distress - Routine HEENT Exam Head: Present: normocephalic Eye: Present: PERRL - Routine Neck Exam Present: supple - Routine Respiratory Exam Present: CTA bilaterally - Routine Cardiovascular Exam Present: RRR, S1, S2 - Routine Abdominal Exam Present: soft, normoactive bowel sounds - Routine Neurological Exam Present: alert, oriented X3, CN II-XII intact - Routine Psychiatric Exam Present: normal affect Results - Labs CBC & Chem 7: 05/06/18 05:10 05/08/18 12:00 Laboratory Results - last 24 hr 05/08/18 12:00 Sodium 143 Potassium 4.3 Chloride 110 H Carbon Dioxide 21.9 Anion Gap 11 BUN 19 H Creatinine 2.45 H Estimated GFR 35 L Random Glucose 96 Calcium 9.1 Assessment and Plan - Plan Hypertensive crisis Nicardipine drip- - d/w staff- Continue to wean to off. Patient states he was previously on lisinopril however does not know the dosing started on Amlodipine and clonidine which was increased to 0.2 mg. BP's still higher than the 140's. Hydralazine added. 05/05 patient still on Cardene drip, I will increase hydralazine dose from 25 mg every 8 hours to 50 minute grams every 8 hours p.o. Continue amlodipine 10 mg p.o. daily and clonidine 0.2 mg p.o. every 8 hours.50 05/06 patient still on Cardene drip. Continue hydralazine at 50 mg every 8 hours orally, amlodipine 10 g daily and increase clonidine to 0.3 mg p.o. every 8 hours. This was discussed with RN who will try to titrate the patient off Cardene drip. 05/07 of Cardene drip. Patient however still with severely elevated blood pressure with systolic blood pressure in the 170s. Increase hydralazine to 100 mg every 8 hours orally. Continue amlodipine 10 mg daily and clonidine 0.3 mg p.o. every 8 hours. 05/08 BP still severely elevated with systolic blood pressure in the 170s. I will start the patient on Cardura 2 mg p.o. daily. Subacute cerebellar CVA. The patient presented with new left facial numbness. Neurology consulted. The patient was placed on aspirin. Head CT negative. MRI of the brain showed a subacute cerebellar infarct. MRI and ultrasound the carotids negative for stenosis. Carotid echo negative. Continue aspirin. TOM Likely with some underlying hypertensive nephrosclerosis. Creatinine on admission 2.43, worsening initially peaked at 3.16 now downtrending to 2.32. Baseline creatinine seems to be at 1.9. Possible CKD stage III. Nephrology consulted. Follow-up recommendations. Continue IV fluids as per nephrology. Tests ordered for evaluation of secondary hypertension was sent. Continue to monitor BUN and creatinine, strict input and output, avoid nephrotoxins. 05/06 creatinine continues to trend down, continue to monitor BUN and creatinine, history I's and O's. Renin is upper normal range. Metanephrine and Nor metanephrine normal. GFR improved may need MRA FREDDIE Creatinine continue to improve. Avoid Nephrotoxins. Has no proteinuria. 05/08 creatinine continues to trend up. Follow-up nephrology recommendations. Hypokalemia Status post replacement. Continue to monitor BMP and replace as needed. Nausea Patient initially with persistent nausea. Possibly secondary from uremia or severely elevated blood pressure. Nausea has resolved. Continue Zofran as needed. TEDs/SCDs for DVT prophylaxis -continue heparin subcutaneously. FEN Heart healthy diet Physical therapy is recommended rehab placement, however patient is refusing and states he wants to be discharged home when ready. Code Status: Full code Discussed Condition With: RN, patient, family preservation caseworker. Discharge Planning: Discharge pending stabilization of blood pressure and titrating the patient off Cardene drip. Nephrology clearance.
--- NOTE | 2018-05-08 21:41 | P.PN ---
Subjective Interval history: Patient is alert, no headache, no dizziness. Physical Exam Vital signs: Vital Signs 05/08/18 00:00 05/08/18 04:00 05/08/18 08:00 Temperature 98.2 F 98 F 98.2 F Pulse Rate 53 L 53 L 51 L Respiratory Rate 14 14 20 Blood Pressure 154/97 H 161/95 H 173/112 H Pulse Oximetry 96 95 98 05/08/18 12:00 05/08/18 16:00 Temperature 98.0 F 98.2 F Pulse Rate 60 69 Respiratory Rate 16 16 Blood Pressure 167/96 H 163/98 H Pulse Oximetry 100 97 Intake & Output 05/08/18 05/08/18 05/09/18 06:59 18:59 06:59 Intake Total 360 / 360 Output Total 1600 / 1600 Balance -1240 / -1240 Weight 78.5 kg Intake: Oral 360 / 360 Output: Urine 1600 / 1600 Other: # Bowel Movements 0 - Constitutional no acute distress - Routine HEENT Exam Head: Present: normocephalic Eye: Present: EOMI ENT: Present: mucous membranes moist - Routine Neck Exam Present: supple - Routine Cardiovascular Exam Present: S1, S2 - Routine Abdominal Exam Present: soft, normoactive bowel sounds, distended - Routine Neurological Exam Present: alert, oriented X3 Results - Labs CBC & Chem 7: 05/06/18 05:10 05/08/18 12:00 Laboratory Results - last 24 hr 05/08/18 12:00 Sodium 143 Potassium 4.3 Chloride 110 H Carbon Dioxide 21.9 Anion Gap 11 BUN 19 H Creatinine 2.45 H Estimated GFR 35 L Random Glucose 96 Calcium 9.1 Assessment and Plan - Plan (1) Malignant hypertension (arteriolar nephrosclerosis) ICD Codes: I12.9 - Hypertensive chronic kidney disease with stage 1 through stage 4 chronic kidney disease, or unspecified chronic kidney disease Plan: patient had BP 287/174 He had end organ damage HTN nephropathy non compliance stopped medications BP better , now off Nicardipine gtt. Renin is upper normal range. Metanephrine and Nor metanephrine normal. May need MRA for FREDDIE , if Creatinine improved. Creatinine increasing, may be related to uncontrolled HTN. Avoid Nephrotoxins. Has no proteinuria. (2) Hypertensive emergency ICD Codes: I16.1 - Hypertensive emergency Status: Acute Plan: non compliance (3) CVA (cerebral vascular accident) ICD Codes: I63.9 - Cerebral infarction, unspecified Plan: neurology following
[2018-05-09] MEDS: Heparin - SQ 10,000 UNITS/ML Vial SQ SCH ×2 (05:00→13:24)
[2018-05-09] MEDS: amLODIPine 10 MG Tablet PO SCH (09:06)
[2018-05-09] MEDS: Senna/Docusate Sodium 8.6/50 MG Tablet PO SCH (09:06)
[2018-05-09] MEDS: Pantoprazole Inj 40 MG Vial IV.PUSH SCH (09:06)
[2018-05-09 11:27] LABS: Calcium 9.1 mg/dL (8.5-10.1); Carbon Dioxide 18.6 meq/L (21.0-32.0)
--- NOTE | 2018-05-09 15:58 | P.PNIM ---
Subjective Interval history: The patient denies chest pain, shortness of breath, headache, dizziness. The patient states that he wants to go home. BP better. Patient has good urine output. Physical Exam Vital signs: Vital Signs 05/08/18 16:00 05/08/18 18:00 05/08/18 18:30 Temperature 98.2 F Pulse Rate 69 62 66 Respiratory Rate 16 Blood Pressure 163/98 H 148/84 H Pulse Oximetry 97 98 99 05/08/18 19:00 05/08/18 19:30 05/08/18 20:00 Temperature 97.8 F Pulse Rate 63 61 63 Respiratory Rate 14 Blood Pressure 159/67 H 152/67 H 154/66 H Pulse Oximetry 99 98 99 05/08/18 20:30 05/08/18 21:00 05/08/18 21:30 Temperature Pulse Rate 60 60 60 Respiratory Rate Blood Pressure 152/83 H 147/74 H 154/72 H Pulse Oximetry 99 96 97 05/08/18 22:00 05/08/18 22:30 05/08/18 23:00 Temperature Pulse Rate 58 L 57 L 60 Respiratory Rate Blood Pressure 147/92 H 148/88 H 163/94 H Pulse Oximetry 99 96 95 05/08/18 23:30 05/09/18 00:00 05/09/18 00:30 Temperature 98 F Pulse Rate 58 L 57 L 65 Respiratory Rate Blood Pressure 159/91 H 168/99 H 194/72 H Pulse Oximetry 98 98 100 05/09/18 00:42 05/09/18 01:00 05/09/18 01:01 Temperature Pulse Rate 62 67 58 L Respiratory Rate Blood Pressure 167/96 H 162/75 H Pulse Oximetry 100 99 97 05/09/18 02:00 05/09/18 03:00 05/09/18 04:00 Temperature 97.9 F Pulse Rate 59 L 56 L 58 L Respiratory Rate Blood Pressure 149/88 H 148/80 H 142/78 H Pulse Oximetry 96 97 97 05/09/18 05:00 05/09/18 06:00 05/09/18 07:00 Temperature Pulse Rate 67 63 54 L Respiratory Rate Blood Pressure 168/89 H 142/79 H 143/79 H Pulse Oximetry 99 98 96 05/09/18 08:00 05/09/18 09:00 05/09/18 10:00 Temperature 98.2 F Pulse Rate 56 L 62 61 Respiratory Rate 19 Blood Pressure 146/77 H 159/96 H 151/89 H Pulse Oximetry 97 100 100 05/09/18 11:00 05/09/18 12:00 05/09/18 13:00 Temperature 97.8 F Pulse Rate 60 61 62 Respiratory Rate 20 Blood Pressure 142/88 H 140/85 152/90 H Pulse Oximetry 97 98 97 05/09/18 14:00 Temperature Pulse Rate 60 Respiratory Rate Blood Pressure 146/88 H Pulse Oximetry 98 Intake & Output 05/08/18 05/09/18 05/09/18 18:59 06:59 18:59 Intake Total 100 / 100 Output Total 500 / 500 Balance -400 / -400 Weight 76.9 kg Intake: Oral 100 / 100 Output: Urine 500 / 500 Other: # Bowel Movements 0 Narrative: - Constitutional no acute distress - Routine HEENT Exam Head: Present: normocephalic Eye: Present: PERRL - Routine Neck Exam Present: supple - Routine Respiratory Exam Present: CTA bilaterally - Routine Cardiovascular Exam Present: RRR, S1, S2 - Routine Abdominal Exam Present: soft, normoactive bowel sounds - Routine Neurological Exam Present: alert, oriented X3, CN II-XII intact - Routine Psychiatric Exam Present: normal affect Results - Labs CBC & Chem 7: 05/06/18 05:10 05/09/18 10:36 Laboratory Results - last 24 hr 05/06/18 05/09/18 11:39 10:36 Sodium 139 Potassium 4.0 Chloride 109 H Carbon Dioxide 18.6 L Anion Gap 11 BUN 21 H Creatinine 2.45 H Estimated GFR 35 L Random Glucose 95 Calcium 9.1 Renin 3.5 Assessment and Plan - Plan Hypertensive crisis Nicardipine drip- - d/w staff- Continue to wean to off. Patient states he was previously on lisinopril however does not know the dosing started on Amlodipine and clonidine which was increased to 0.2 mg. BP's still higher than the 140's. Hydralazine added. 05/05 patient still on Cardene drip, I will increase hydralazine dose from 25 mg every 8 hours to 50 minute grams every 8 hours p.o. Continue amlodipine 10 mg p.o. daily and clonidine 0.2 mg p.o. every 8 hours.50 05/06 patient still on Cardene drip. Continue hydralazine at 50 mg every 8 hours orally, amlodipine 10 g daily and increase clonidine to 0.3 mg p.o. every 8 hours. This was discussed with RN who will try to titrate the patient off Cardene drip. 05/07 of Cardene drip. Patient however still with severely elevated blood pressure with systolic blood pressure in the 170s. Increase hydralazine to 100 mg every 8 hours orally. Continue amlodipine 10 mg daily and clonidine 0.3 mg p.o. every 8 hours. 05/08 BP still severely elevated with systolic blood pressure in the 170s. I will start the patient on Cardura 2 mg p.o. daily. 05/09 BP much improved and now stable. Continue current therapy with hydralazine 100 mg p.o. every 8 hours, amlodipine 10 minutes p.o. daily, clonidine 0.3 minutes p.o. every 8 hours Cardura 2 mg p.o. daily. Subacute cerebellar CVA. The patient presented with new left facial numbness. Neurology consulted. The patient was placed on aspirin. Head CT negative. MRI of the brain showed a subacute cerebellar infarct. MRI and ultrasound the carotids negative for stenosis. Carotid echo negative. Continue aspirin. TOM Likely with some underlying hypertensive nephrosclerosis. Creatinine on admission 2.43, worsening initially peaked at 3.16 now downtrending to 2.32. Baseline creatinine seems to be at 1.9. Possible CKD stage III. Nephrology consulted. Follow-up recommendations. Continue IV fluids as per nephrology. Tests ordered for evaluation of secondary hypertension was sent. Continue to monitor BUN and creatinine, strict input and output, avoid nephrotoxins. 05/06 creatinine continues to trend down, continue to monitor BUN and creatinine, history I's and O's. Renin is upper normal range. Metanephrine and Nor metanephrine normal. GFR improved may need MRA FREDDIE Creatinine continue to improve. Avoid Nephrotoxins. Has no proteinuria. 05/08 creatinine continues to trend up. Follow-up nephrology recommendations. 05/09 creatinine now stable. Follow-up nephrology recommendations. Hypokalemia Status post replacement. Continue to monitor BMP and replace as needed. Nausea Patient initially with persistent nausea. Possibly secondary from uremia or severely elevated blood pressure. Nausea has resolved. Continue Zofran as needed. TEDs/SCDs for DVT prophylaxis -continue heparin subcutaneously. FEN Heart healthy diet Physical therapy is recommended rehab placement, however patient is refusing and states he wants to be discharged home when ready. Discharge Planning: Discharge pending stabilization of blood pressure and titrating the patient off Cardene drip. Nephrology clearance.
--- NOTE | 2018-05-09 17:27 | P.DS ---
Date of admission: 04/30/18 22:11 Primary care physician: No Primary Care Physician Attending physician on discharge: John Li Brief History from admission: 42-year-old male with past medical history significant for hypertension presents the emergency department for evaluation of headache, dizziness and blurry vision. The patient reports that he has been out of his blood pressure medication for approximately 2 months secondary to being homeless. In the emergency department his blood pressure was found to be 287/174. Head CT negative for acute process. The patient continues to complain of his symptoms despite being on a nicardipine drip. He denies any chest pain or shortness of breath. No abdominal pain. No nausea/vomiting/diarrhea. No lateralizing signs /symptoms. No fever/chills DS: Diagnosis - Discharge Diagnosis (1) Hypertensive crisis Status: Resolved (2) Cerebellar cerebrovascular accident (CVA) without late effect Status: Acute (3) TOM (acute kidney injury) Status: Acute (4) Hypokalemia Status: Resolved (5) Nausea Status: Resolved DS: Medications - Discharge Medications Prescriptions: amlodipine [Norvasc] 10 mg PO DAILY #30 tab clonidine HCl 0.3 mg PO Q8HR #90 tab doxazosin 2 mg PO DAILY #30 tab hydralazine 100 mg PO TID #90 tab DS: Summary Hospital Course: The patient was admitted into the intensive care unit secondary to hypertensive crisis. The patient was started on nicardipine drip which had to be kept for several days given the patient's blood pressure was very elevated. The patient' s blood pressure improved with hydralazine 100 mg p.o. every 8 hours, amlodipine 10 mg p.o. daily, clonidine 0.2 mg p.o. daily and Cardura 2 mg p.o. daily. Patient was found to have a subacute cerebellar CVA. The patient presented with a new left facial numbness. Neurology was consulted. The patient was placed on aspirin. Head CT was negative. MRI of the brain however showed a subacute cerebellar infarct. MRI and ultrasound of the carotids were negative for stenosis. Carotid echo negative. Aspirin recommended as secondary prevention of stroke. Patient was also found to have acute kidney injury creatinine on admission 2.43 initially worsening peaked at 3.16 and afterwards downtrending. Nephrology was consulted and the patient was started on IV fluids. Tests were ordered to evaluate possible causes of secondary hypertension. Running was upper normal range, metanephrines and normetanephrines normal, creatinine stabilized and the patient. Physical therapy however recommended the patient to be discharged to rehab which the patient was refusing. However still not clear if the patient was a safe discharge. Patient decided to leave AGAINST MEDICAL ADVICE. Also prescription for medications needed where prescribed prior to discharge. Patient was also advised to follow-up with nephrology and primary care physician. - Time Spent with Patient Total time spent providing and/or coordinating discharge services: Greater than 30 minutes Exam Vital signs: Vital Signs 05/08/18 18:00 05/08/18 18:30 05/08/18 19:00 Temperature Pulse Rate 62 66 63 Respiratory Rate Blood Pressure 148/84 H 159/67 H Pulse Oximetry 98 99 99 05/08/18 19:30 05/08/18 20:00 05/08/18 20:30 Temperature 97.8 F Pulse Rate 61 63 60 Respiratory Rate 14 Blood Pressure 152/67 H 154/66 H 152/83 H Pulse Oximetry 98 99 99 05/08/18 21:00 05/08/18 21:30 05/08/18 22:00 Temperature Pulse Rate 60 60 58 L Respiratory Rate Blood Pressure 147/74 H 154/72 H 147/92 H Pulse Oximetry 96 97 99 05/08/18 22:30 05/08/18 23:00 05/08/18 23:30 Temperature Pulse Rate 57 L 60 58 L Respiratory Rate Blood Pressure 148/88 H 163/94 H 159/91 H Pulse Oximetry 96 95 98 05/09/18 00:00 05/09/18 00:30 05/09/18 00:42 Temperature 98 F Pulse Rate 57 L 65 62 Respiratory Rate Blood Pressure 168/99 H 194/72 H 167/96 H Pulse Oximetry 98 100 100 05/09/18 01:00 05/09/18 01:01 05/09/18 02:00 Temperature Pulse Rate 67 58 L 59 L Respiratory Rate Blood Pressure 162/75 H 149/88 H Pulse Oximetry 99 97 96 05/09/18 03:00 05/09/18 04:00 05/09/18 05:00 Temperature 97.9 F Pulse Rate 56 L 58 L 67 Respiratory Rate Blood Pressure 148/80 H 142/78 H 168/89 H Pulse Oximetry 97 97 99 05/09/18 06:00 07/04/18 07:00 05/09/18 08:00 Temperature 98.2 F Pulse Rate 63 54 L 56 L Respiratory Rate 19 Blood Pressure 142/79 H 143/79 H 146/77 H Pulse Oximetry 98 96 97 05/09/18 09:00 05/09/18 10:00 05/09/18 11:00 Temperature Pulse Rate 62 61 60 Respiratory Rate Blood Pressure 159/96 H 151/89 H 142/88 H Pulse Oximetry 100 100 97 05/09/18 12:00 05/09/18 13:00 05/09/18 14:00 Temperature 97.8 F Pulse Rate 61 62 60 Respiratory Rate 20 Blood Pressure 140/85 152/90 H 146/88 H Pulse Oximetry 98 97 98 Intake & Output 05/08/18 05/09/18 05/09/18 18:59 06:59 18:59 Intake Total 100 / 100 Output Total 500 / 500 Balance -400 / -400 Weight 76.9 kg Intake: Oral 100 / 100 Output: Urine 500 / 500 Other: # Bowel Movements 0 Narrative: - Constitutional no acute distress - Routine HEENT Exam Head: Present: normocephalic Eye: Present: PERRL - Routine Neck Exam Present: supple - Routine Respiratory Exam Present: CTA bilaterally - Routine Cardiovascular Exam Present: RRR, S1, S2 - Routine Abdominal Exam Present: soft, normoactive bowel sounds - Routine Neurological Exam Present: alert, oriented X3, CN II-XII intact - Routine Psychiatric Exam Present: normal affect Results Procedures completed during hospitalization: none Labs on day of discharge: Labs from last 24 hours 05/09/18 05/06/18 10:36 11:39 Sodium 139 Potassium 4.0 Chloride 109 H Carbon Dioxide 18.6 L Anion Gap 11 BUN 21 H Creatinine 2.45 H Estimated GFR 35 L Random Glucose 95 Calcium 9.1 Renin 3.5 - Impressions Head CT on 04/30/18 did not show any acute intracranial abnormality. Chest x-ray without any acute cardiopulmonary abnormality. Renal ultrasound within normal limits. Head MRA moderate atherosclerosis intracranial vascular disease otherwise negative. Repeat head CT on 05/02/18 no acute abnormality seen. Carotid ultrasound with flow-limiting carotid stenosis. Brain MRI subacute infarction in the left cerebellar peduncle. Discharge Plan - Discharge Disposition Patient Disposition: Left Against Medical Advice - Discharge Condition Condition: Stable - Discharge Order Discharge Orders: AMA Discharge (Routine); Ordered 05/09/18 Ordered By: John Li - Discharge Details Discharge Comment: Need to follow up with PCP and nephrology - Physicians Team Primary Care Provider: Primary Care Suzanne Arreola Attending Provider: John Li Other Providers: Chloé Tyler MD ; Sylvester Caballero MD ; [facility] ; [facility] - Rxs /Orders / Referrals /Forms Prescriptions: New amlodipine [Norvasc] 10 mg Tablet 10 mg PO DAILY Qty: 30 RF: 0 clonidine HCl 0.3 mg Tablet 0.3 mg PO Q8HR Qty: 90 RF: 0 doxazosin 2 mg Tablet 2 mg PO DAILY Qty: 30 RF: 0 hydralazine 100 mg Tablet 100 mg PO TID Qty: 90 RF: 0 Continue aspirin 81 mg Tablet,Chewable 81 mg PO DAILY Discontinued lisinopril [Zestril] 2.5 mg Tablet 2.5 mg PO DAILY - Discharge Instructions Additional Instructions: Fu with nephrology - Dr Watkins
== END 2018-05-09 18:00 | disposition left against medical advice (07) ==
LOC: HIMC 22:11
PROVIDERS: ADMIT Hospitalist; ATTEND Hospitalist